=== PATIENT | male | born 1975 | race Asian ===

== ENCOUNTER 2016-12-16 11:59 | Day surgery (SDC) | payer OTHER ==
[~2016-12-16] VITALS: Ht 175.3 cm; Wt 107.1 kg
[2016-12-16 13:09] VITALS: BP 110/78; PULSE 66; TEMP 98.8
[2016-12-16] MEDS ORDERED: VIAGRA100 M1 PO (13:11)
[2016-12-16 14:55] VITALS: BP 101/64; PULSE 58; TEMP 98.5
[2016-12-16 15:10] VITALS: BP 100/63; PULSE 57
[2016-12-16 15:25] VITALS: BP 96/70; PULSE 51
[2016-12-16] MEDS ORDERED: PRILOSEC 20MG20 MG PO (15:35)
[2016-12-16 15:40] VITALS: BP 102/69; PULSE 58
== END 2016-12-16 16:00 | disposition home or self-care (01) ==
LOC: SDCO 11:59
DX: K22.2 Esophageal obstruction (principal); K21.0 Gastro-esophageal reflux disease with esophagitis; R13.12 Dysphagia, oropharyngeal phase
CPT/HCPCS: C1726; J2250; J3010; J7030